=== PATIENT | female | born 1965 | race Caucasian/White ===

== ENCOUNTER → 2017-01-05 | Outpatient (CLI) | payer OTHER ==
[~2017-01-05] MED LIST: PAXIL20 MG PO
== END ==
LOC: HEART 5 14:59
DX: J42 Unspecified chronic bronchitis (principal); R94.2 Abnormal results of pulmonary function studies
CPT/HCPCS: 94060; 94729

== ENCOUNTER → 2021-01-08 | Outpatient (CLI) | payer OTHER ==
[2021-01-08 09:34] LABS: HEMOGLOBIN 14.4 gm/dl (12.3-15.3); RED BLOOD COUNT 4.64 M/UL (4.00-5.10)
[2021-01-08 09:56] LABS: BUN/CREATININE RATIO 18 (0-10)
== END ==
LOC: LAB 08:57
PROVIDERS: Physician Assistant
DX: E03.9 Hypothyroidism, unspecified (principal); R73.03 Prediabetes; E78.5 Hyperlipidemia, unspecified
CPT/HCPCS: 36415; 80053; 80061; 83036; 84443; 85025

== ENCOUNTER → 2021-07-30 | Outpatient (CLI) | payer OTHER | LOC: KOH-I 15:23 | DX: F17.210 Nicotine dependence, cigarettes, uncomplicated (principal); R91.8 Other nonspecific abnormal finding of lung field | CPT/HCPCS: 71271 ==

== ENCOUNTER → 2021-11-08 | Outpatient (CLI) | payer OTHER | LOC: EXRD 14:15 → HEART 5 14:15 | DX: R06.02 Shortness of breath (principal) | CPT/HCPCS: 94060; 94729 ==